=== PATIENT | male | born 1960 | race Caucasian/White ===

== ENCOUNTER → 2019-07-16 | Outpatient (CLI) | payer OTHER ==
--- NOTE | 2019-07-16 09:22 | 2DMMODE ---
[facility] [place] [address] 2 D/M-MODE ECHOCARDIOGRAM Name: TRANG GRAMAJO Room #: REG CL [facility]#: [id number] Admission: 07/16/19 Attend Phys: Lucas Lua MD Discharge: Date of : 60 Date of Service: 07/16/19 0922 Report #: [id number] THIS REPORT FOR: //name// APPROVED REPORT Study performed: 07/16/2019 08:05:37 EXAM: Comprehensive 2D, Doppler, and color-flow Echocardiogram Patient Location: Out-Patient Status: routine BSA: 2.39 HR: 71 bpm BP: 166/96 mmHg Rhythm: NSR Other Information Study Quality: Good Indications Arrhythmia. Hx: HTN, HLP. 2D Dimensions RVDd: 37.89 mm IVSd: 11.42 (7-11mm) LVOT Diam: 23.67 (18-24mm) LVDd: 59.32 mm PWd: 8.94 (7-11mm) Ascending Ao: 35.31 (22-36mm) LVDs: 43.39 (25-40mm) Aortic Root: 37.40 mm Volumes Left Atrial Volume (Systole) Single Plane 4CH: 100.40 mL Single Plane 2CH: 108.58 mL LA ESV Index: 47.00 mL/m2 Aortic Valve AoV Peak Nicolas.: 1.40 m/s AO Peak Gr.: 7.79 mmHg LVOT Max P.72 mmHg LVOT Max V: 0.96 m/s MERYL Vmax: 3.04 cm2 Mitral Valve E/A Ratio: 2.1 MV Decel. Time: 184.01 ms MV E Max Nicolas.: 0.88 m/s [facility] [address] [place] [address] 2 D/M-MODE ECHOCARDIOGRAM Name: TRANG GRAMAJO Room #: REG [facility]#: [id number] Admission: 07/16/19 Attend Phys: Lucas Lua MD Discharge: Date of : 60 Date of Service: 07/16/19 0922 Report #: [id number] MV A Nicolas.: 0.42 m/s MV PHT: 53.36 ms IVRT: 72.66 ms Pulmonary Valve PV Peak Nicolas.: 1.03 m/s PV Peak Gr.: 4.27 mmHg Pulmonary Vein P Vein S: 0.64 m/s P Vein D: 0.95 m/s P Vein S/D Ratio: 0.67 Tricuspid Valve TR Peak Nicolas.: 2.88 m/s RAP Estimate: 5.00 mmHg TR Peak Gr.: 33.18 mmHg PA Pressure: 38.00 mmHg Left Ventricle Left ventricle is mild to moderately dilated. Mild septal hypertrophy is present. Left ventricular systolic function is normal. LVEF is 50-55%. Right Ventricle The right ventricle is normal size. The right ventricular systolic function is normal. Atria Left atrium is moderate to severely dilated. The right atrium size is normal. Aortic Valve The aortic valve is normal in structure. No aortic regurgitation is present. There is no aortic valvular stenosis. Mitral Valve The mitral valve is normal in structure. Severe mitral regurgitation. Tricuspid Valve The tricuspid valve is normal in structure. Mild tricuspid regurgitation. Estimated PAP is 40mmHg. Pulmonic Valve The pulmonary valve is normal in structure. Trace pulmonic regurgitation. [facility] [address] [place] [address] 2 D/M-MODE ECHOCARDIOGRAM Name: TRANG GRAMAJO Room #: VINNIE Boyer#: [id number] Admission: 07/16/19 Attend Phys: Lucas Lua MD Discharge: Date of : 60 Date of Service: 07/16/19 0922 Report #: [id number] Great Vessels The ascending aorta is normal in size. IVC is mildly dilated and collapses >50% with inspiration. Pericardium There is no pericardial effusion. <Conclusion> Left ventricle is mild to moderately dilated. Mild septal hypertrophy is present. LVEF is 50-55%. The right ventricle is normal size. Left atrium is moderate to severely dilated. The aortic valve is normal in structure. Severe mitral regurgitation. Mild tricuspid regurgitation. Estimated PAP is 40mmHg. The ascending aorta is normal in size. There is no pericardial effusion. <ELECTRONICALLY SIGNED> By: Chris Lawler MD, [facility] 07/16/19921 1 1 Chris Lawler MD, [facility] /INF
== END ==
LOC: NUC 07:36
DX: I08.1 Rheumatic disorders of both mitral and tricuspid valves (principal); I11.9 Hypertensive heart disease without heart failure; E78.5 Hyperlipidemia, unspecified; J44.9 Chronic obstructive pulmonary disease, unspecified; Z87.891 Personal history of nicotine dependence; Z79.899 Other long term (current) drug therapy; Z79.82 Long term (current) use of aspirin

== ENCOUNTER → 2019-07-25 | Outpatient (CLI) | payer OTHER ==
[~2019-07-25] VITALS: Ht 182.9 cm; Wt 119.3 kg
[~2019-07-25] MED LIST: ACYCLOVIR 400400 MG PO; ASPIR 8181 MG PO; COQ-10100 MG PO; CRESTOR10 MG PO; FISH OIL 1,001000 M2 PO; GARLIC1000 MG PO; GLUCOSAMINE &1 EAC1 PO; IRBESARTAN300 MG PO; OMEPRAZOLE40 MG PO; TOPROL XL100 MG PO
[2019-07-25 07:35] VITALS: BP 153/92
[2019-07-25 07:44] LABS: HEMATOCRIT 42.9 % (42.0-52.0); HEMOGLOBIN 14.5 gm/dL (14.0-18.0); MCH 29.9 pg (26.0-34.0); MCHC 33.8 g/dL (28.0-37.0); MCV 88.2 fL (80.0-100.0); RBC 4.86 mil/uL (4.50-6.00); RDW 13.3 % (10.5-14.5); WBC 6.6 thou/uL (4.0-11.0)
[2019-07-25 08:03] LABS: CALCIUM 9.1 mg/dL (8.5-10.1); CREATININE 0.9 mg/dL (0.7-1.3); POTASSIUM 3.9 mmol/L (3.5-5.1)
--- NOTE | 2019-07-25 08:31 | TEE ---
[facility] [place] [address] TRANSESOPHAGEAL ECHOCARDIOGRAM Name: TRANG GRAMAJO Room #: REG Rosalind#: [id number] Admission: 07/25/19 Attend Phys: Lucas Lua MD Discharge: Date of : 60 Date of Service: 07/25/19 0831 Report #: [id number] THIS REPORT FOR: //name// APPROVED REPORT Study performed: 07/25/2019 07:51:52 EXAM: Transesophageal Echocardiogram with Doppler Patient Location: Out-Patient Room #: cvl Status: routine BSA: 2.39 HR: 72 bpm BP: 153/92 mmHg Rhythm: NSR Other Information Study Quality: Excellent Indications Mitral Valve Disease Echo Enhancing Agent Indication: Rule out Shunt Agent(s) / Amount(s) Used: Agitated Saline 6 cc Procedure After obtaining informed consent, patient underwent transesophageal echo in the [employer]. Type of Sedation : Conscious Sedation Sedation was administered by LUIGI Rondon. Sedation was achieved intravenously with: Versed (4) Fentanyl (100) Transesophageal probe was inserted and advanced into esophagus without difficulty by Son Booth MD. The BRANNON was performed without complications. Throughout the procedure, the blood pressure, pulse oximetry, cardiac rhythm, and rate were monitored. The patient tolerated the procedure without adverse effects. Recovery from conscious sedation was uneventful and vital signs were stable. Left Ventricle Left ventricle is mildly dilated. There is normal LV segmental wall motion. There is normal left ventricular wall thickness. Left [facility] [address] [place] [address] TRANSESOPHAGEAL ECHOCARDIOGRAM Name: TRANG GRAMAJO Room #: REG CL .Doretha.#: [id number] Admission: 07/25/19 Attend Phys: Lucas Lua MD Discharge: Date of : 60 Date of Service: 07/25/19 0831 Report #: [id number] ventricular systolic function is normal. LVEF is 55%. Right Ventricle The right ventricle is normal size. The right ventricular systolic function is normal. Atria Left atrium is dilated. No thrombus is visualized in the left atrium or appendage. No shunting noted with contrast bubble injection. Right atrium is dilated. Aortic Valve The aortic valve is normal in structure. No aortic regurgitation is present. There is no aortic valvular stenosis. Mitral Valve The mitral valve is normal in structure. Mild mitral regurgitation. Tricuspid Valve The tricuspid valve is normal in structure. Trace tricuspid regurgitation. Pulmonic Valve The pulmonary valve is normal in structure. Trace pulmonic regurgitation. Great Vessels The aortic root is normal in size. The ascending aorta is normal in size. IVC is normal in size and collapses >50% with inspiration. Pericardium There is no pericardial effusion. <Conclusion> Left ventricular systolic function is normal. There is normal LV segmental wall motion. LVEF is 55%. Both atria are dilated. No thrombus is visualized in the left atrium or appendage. No shunting noted with contrast bubble injection. The aortic valve is normal in structure. No aortic regurgitation or stenosis The mitral valve is normal in structure. Mild mitral [facility] [address] [place] [address] TRANSESOPHAGEAL ECHOCARDIOGRAM Name: TRANG GRAMAJO Room #: REG CL [facility].#: [id number] Admission: 07/25/19 Attend Phys: Lucas Lua MD Discharge: Date of : 60 Date of Service: 07/25/19830 Report #: [id number] regurgitation. There is no pericardial effusion. <ELECTRONICALLY SIGNED> By: Son Booth MD, FACC 07/25/19830 0 0 Son Booth MD, FACC /INF
--- NOTE | 2019-07-25 08:44 | EKG ---
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: [facility] : 1960 Requested By: Son Booth Order Number: [id number] MD: Son Booth Measurements Intervals [place] Rate: 67 P: 60 MD: 166 QRS: 36 QRSD: 96 T: 55 QT: 428 QTc: 452 Interpretive Statements Sinus rhythm Ventricular premature complex No previous ECG available for comparison Electronically Signed On 07-25-2019 8:44:22 CDT by Son Booth [email or web address] <ELECTRONICALLY SIGNED> By: Son Booth MD, [facility] 07/25/19 0844 0724 0724 Son Booth MD, FAC /EPI
--- NOTE | 2019-07-25 16:52 | CATHLAB ---
[facility] [address] [place] [address] INVASIVE PROCEDURE REPORT Name: TRANG GRAMAJO Room #: REG [facility]#: [id number] Admission: 07/25/19 Attend Phys: Lucas Lua MD Discharge: Date of : 60 Date of Service: 07/25/19 165 Report #: [id number] THIS REPORT FOR: //name// APPROVED REPORT Study performed: 07/25/2019 07:31:17 Patient Details Patient Status: Out-Patient Room #: The patient is a 59 year-old male Event Personnel Lucas Lua Children'S Minister, Larry Mckenna RN, Katlyn Akbar RTR, Bharat Contreras Roberta Monitor, La Andrade RN dulser Performed Art Access - R femoral artery* Left Heart Cath w/LT VGram [id number] LHCLV 83967 Initial Mod Sed Same Phys/QHP Gr5y 637295 Hemostasis with Manual pressure 69697 Mod Sed Same Phys/QHP Ea 745659 Indication Dyspnea, Positive stress test Risk Factors Hypercholesterolemia, Hypertension Procedure Narrative The Right Groin^ was infiltrated with 1% Lidocaine subcutaneous anesthesia. A PINNACLE 4FR Sheath #[id number] sheath was inserted into the RFA^. Coronary angiography was performed using coronary diagnostic catheters. The right coronary system was accessed and visualized with a JR4 catheter. The left coronary system was accessed and visualized with a JL4 catheter. The left ventricle was accessed and visualized with a PIGTAIL catheter. Left ventriculogram was performed in 30 degree projection. Hemostasis was obtained with manual pressure following sheath removal without any complications. The patient tolerated the procedure well and there were no complications associated with the procedure. There was no hematoma. Intraoperative Conscious Sedation Sedation start time: 843 Case end Time: [address] [facility] [address] [place] [address] INVASIVE PROCEDURE REPORT Name: TRANG GRAMAJO Room #: REG [facility].#: [id number] Admission: 07/25/19 Attend Phys: Lucas Lua MD Discharge: Date of : 60 Date of Service: 07/25/19 1652 Report #: [id number] Fentanyl 50 mcg Versed 1 mg Fluoro Time: 1.20 minutes Dose: DAP 5703.83 cGycm2 696 mGy Contrast Type and Amount: 75 Coronary Angiography The patient's coronary anatomy is right dominant. Diagnostic Cath Left Main This is a large caliber vessel, patent with no flow-limiting lesions. LAD This is a modest size caliber vessel, traversing the anterior wall and terminating at the apex. This vessel is patent, with minimal luminal irregularities in the mid segment. Diagonal 1 This is a patent vessel, with no flow-limiting lesions. Circumflex This is a moderate size caliber vessel, patent with no flow-limiting lesions. OM1 This is a patent vessel, with no flow-limiting lesions. OM2 This is a patent vessel, with no flow-limiting lesions. Right Coronary The RCA proper appears to be mildly ectatic throughout. There is no evidence for flow limiting lesions. R PDA This is a moderate size caliber vessel, patent with no flow-limiting lesions. RPLV This is a moderate size caliber vessel, patent with no flow-limiting lesions. Left Ventriculography The left ventricle is normal in size with normal contractility. The left ventricular ejection fraction is estimated to be 55-60%. Hemodynamics The aortic pressure is 143/92 mmHg with a mean of 114 mmHg. The left ventricular pressure is 150/5 mmHg with a mean of mmHg. The left ventricular end diastolic pressure is 27 mmHg. There was no gradient across the aortic valve upon pullback. Conclusion 1. There is no evidence for flow limiting lesions. There appears to be minimal luminal irregularities in the mid LAD segment. 2. The RCA is a dominant vessel, mildly ectatic throughout. [facility] [address] [place] [address] INVASIVE PROCEDURE REPORT Name: TRANG GRAMAJO Room #: REG CL [facility]#: [id number] Admission: 07/25/19 Attend Phys: Lucas Lua MD Discharge: Date of : 60 Date of Service: 07/25/19 1652 Report #: [id number] 3. Normal LV function. 4. Recommend aggressive risk factor management. <ELECTRONICALLY SIGNED> By: Lucas Lua MD 07/25/191651 51 51 Lucas Lua MD /INF
== END | disposition home or self-care (01) ==
LOC: CATH 07-18 13:09
PROVIDERS: Internal Medicine
DX: I25.41 Coronary artery aneurysm (principal); I52 Other heart disorders in diseases classified elsewhere; I05.9 Rheumatic mitral valve disease, unspecified; I10 Essential (primary) hypertension; E78.00 Pure hypercholesterolemia, unspecified; J44.9 Chronic obstructive pulmonary disease, unspecified; K21.9 Gastro-esophageal reflux disease without esophagitis; Z96.653 Presence of artificial knee joint, bilateral; Z98.890 Other specified postprocedural states; Z82.49 Family history of ischemic heart disease and other diseases of the circulatory system; Z87.891 Personal history of nicotine dependence; Z79.82 Long term (current) use of aspirin; Z79.899 Other long term (current) drug therapy